=== PATIENT | female | born 1970 | race Caucasian/White ===

== ENCOUNTER 2018-05-04 16:01 | Emergency (ER) | payer OTHER, MEDICAID, SELFPAY ==
[2018-05-04 16:19] VITALS: BP 142/95; PULSE 76; RESP 20; TEMP 36.4; O2SAT 95; BMI 52.4
--- NOTE | 2018-05-04 16:22 | DI.RAD.S_ITS ---
PROCEDURE: XR SHOULDER RT MIN 2V INDICATIONS: injury, fall, pain TECHNIQUE: 3 views of the shoulder were acquired. COMPARISON: None. FINDINGS: Bones: No fractures or dislocations. No suspicious bony lesions. Visualized ribs appear intact. Soft tissues: No suspicious soft tissue calcifications. IMPRESSION: No visualized acute fracture or dislocation. However, if clinical concern and/or pain persist, short interval imaging followup in 7-10 days is recommended, as occult injury cannot be definitively excluded. Dictated by: Lashon Lauren M.D. on 05/04/2018 at 18:16 Approved by: Lashon Lauren M.D. on 05/04/2018 at 18:17
--- NOTE | 2018-05-04 16:31 | PC.NURSE ---
Stable. MD exam in triage
--- NOTE | 2018-05-04 17:41 | ED_ITS ---
HPI - Extremity Injury (Upper) General Chief Complaint: Extremity Injury, Upper Stated Complaint: FELL A COUPLE DAYS AGO,STATES DISLOCATED SHOULDER Time Seen by Provider: 05/04/18 16:28 History of Present Illness HPI narrative: HPI 47-year-old obese female presents for evaluation of right shoulder pain that began 2 days ago after she stumbled onto her right shoulder while walking at night without her glasses. Patient notes normal sensation in her right upper extremity, denies further injuries. ROS with no recent constitutional symptoms. Exam Gen: Pleasant, non-toxic appearing, resting comfortably HEENT: NC, AT, PEERL, EOMI. Resp: Clear to auscultation bilaterally. Unlabored respirations with a normal work of breathing. Card: Regular rate and rhythm. Extremities warm and well perfused. GI: Non-distended. : Deferred MSK: RightLeft Upper Extremity: Visually normal, full functional range of motion of the shoulder, elbow, wrist, and fingers. Tenderness to palpation over the long head of the biceps tendon patient, localizes pain over this region with abduction. No abnormal warmth, tenderness, or other palpable abnormalities of the joints or upper arm or forearm; muscle compartments soft.2+ radial pulse , all fingers warm and well perfused.Sensation intact to touch on all fingers. Neuro: AO x 3, no facial asymmetry, vision and hearing WNL. Heme/Lymph: Deferred Skin: Normal color with no visible lesions (other than noted above). Psych: Mood and affect appropriate. XR R Shoulder: pending. MDM Previous chart, nursing note, and vitals reviewed. A: 47-year-old obese female presents for evaluation of right shoulder pain that began 2 days ago after she stumbled onto her right shoulder while walking at night without her glasses. CMS intact. Pain localized over long head of biceps tendon, suspect a strain given full range of motion with only mild to moderate discomfort. Imaging pending at time of patient care transfer to Dr. Cardona, the oncoming overnight provider. Prior to patient care transfer, the patient was advised to use OTC analgesics and follow up with her PCP as needed. Impression: right shoulder pain (please reference below for remainder of encounter information) Related Data Home Medications Medication Instructions Recorded Confirmed buspirone 10 mg PO BID #0 11/09/17 Previous Rx's Medication Instructions Recorded sumatriptan succinate 100 mg PO PRN PRN #9 tab 02/07/17 cetirizine 10 mg PO Q DAY #30 tab 06/05/17 cyclobenzaprine 10 mg PO TIDP PRN #30 tab 08/17/17 albuterol sulfate [Ventolin HFA] 2 puff INH Q4HP PRN #1 inh 09/12/17 topiramate 25 mg PO HS #30 tab 01/17/18 alprazolam 0.25 mg tablet 0.25 mg PO SEE INSTRUCTIONS #30 tab 03/20/18 Allergies Allergy/AdvReac Type Severity Reaction Status Date / Time latex [LATEX] Allergy Severe RASH Unverified 01/23/18 11:47 morphine Allergy Mild Unverified 01/23/18 11:47 PFSH Surgical History Status post tubal ligation (10/31/10) Family History Brother Age: 50 Gout, unspecified cause, unspecified chronicity, unspecified site Essential hypertension Borderline type 2 diabetes mellitus Father Essential hypertension Gout, unspecified cause, unspecified chronicity, unspecified site Hyperlipidemia Mother Age: 69 ST elevation myocardial infarction (STEMI), unspecified artery Diabetes mellitus Hyperlipidemia Hypertension Sister Age: 48 Cerebrovascular accident (CVA), unspecified Pacemaker Gout, unspecified cause, unspecified chronicity, unspecified site Social History Smoking Status: Never smoker Exam Initial Vital Signs Initial Vital Signs: Vital Signs Temperature 97.5 F L 05/04/18 16:19 Pulse Rate 76 05/04/18 16:19 Respiratory Rate 20 05/04/18 16:19 Blood Pressure 142/95 H 05/04/18 16:19 Pulse Oximetry 95 05/04/18 16:19 Course Orders Ordered: ED Orders 05/04/18 16:22 XR shoulder RT min 2V Stat Vital Signs - 8 hr 05/04/18 16:19 Temperature 97.5 F L Pulse Rate 76 Respiratory Rate 20 Blood Pressure 142/95 H Pulse Oximetry 95 Discharge Plan Departure Prescriptions: No Action sumatriptan succinate 100 MG tablet 100 mg PO PRN PRNQty: 9 RF: 5 cetirizine 10 MG tablet 10 mg PO Q DAY Qty: 30 RF: 1 cyclobenzaprine 10 MG tablet 10 mg PO TIDP PRNQty: 30 RF: 0 albuterol sulfate [Ventolin HFA] 90 MCG/PUFF HFA aerosol inhaler 2 puff INH Q4HP PRNQty: 1 RF: 0 buspirone 10 MG tablet 10 mg PO BID Qty: 0 RF: 0 topiramate 25 MG tablet 25 mg PO HS Qty: 30 RF: 2 alprazolam 0.25 mg tablet 0.25 mg PO SEE INSTRUCTIONS Qty: 30 RF: 1
== END 2018-05-04 18:40 | disposition home or self-care (01) ==
PROVIDERS: Emergency Provider Emergency Medicine; Family Provider Family Medicine; PCP Family Medicine
DX: M25.511 Pain in right shoulder (principal); W01.0XXA Fall on same level from slipping, tripping and stumbling without subsequent striking against object, initial encounter
CPT/HCPCS: 73030; 99282; 99283

== ENCOUNTER → 2019-01-14 08:17 | Outpatient (CLI) | payer OTHER, MEDICAID, SELFPAY ==
[2019-01-14 09:06] LABS: Hemoglobin A1C% w Est Avg Glu 5.3 % (4.0-6.0)
[2019-01-14 09:13] LABS: Alanine Aminotransferase 49 IU/L (9-52); Albumin 4.2 g/dL (3.5-5.0); Albumin Globulin Ratio 1.2 (1.0-2.8); Alkaline Phosphatase 77 U/L (38-126); Aspartate Aminotransferase 37 IU/L (14-36); BUN Creatinine Ratio 17.5 (6-22); Bilirubin Total 0.8 mg/dL (0.2-1.3); Blood Urea Nitrogen 14 mg/dL (7-17); Calcium 9.3 mg/dL (8.4-10.2); Carbon Dioxide 29 mmol/L (22-32); Chloride 102 mmol/L (98-107); Cholesterol 171 mg/dL (140-199); Estimated Glomerular Filt Rate > 60.0 mL/min (>60); Globulin 3.5 g/dL (1.7-4.1); Glucose 96 mg/dL (70-100); HDL Cholesterol 45 mg/dL (40-60); HEMOLYSIS < 15 (0-50); LDL Cholesterol Calculated 108 mg/dL (<100); Potassium 4.8 mmol/L (3.4-5.1); Sodium 138 mmol/L (137-145); Total Protein 7.7 g/dL (6.3-8.2); Triglycerides 91 mg/dL (35-150)
== END ==
PROVIDERS: PCP Family Medicine; Visit Provider Family Medicine
DX: F41.8 Other specified anxiety disorders (principal); E66.01 Morbid (severe) obesity due to excess calories
CPT/HCPCS: 36415; 80053; 80061; 83036

== ENCOUNTER 2019-01-31 11:20 | Emergency (ER) | payer OTHER, MEDICAID, SELFPAY ==
[2019-01-31 11:32] VITALS: BP 155/91; PULSE 92; RESP 22; TEMP 36.5; O2SAT 97
--- NOTE | 2019-01-31 12:38 | PC.NURSE ---
Traci is tearful talking with this RN, reports feel edgy. She and her have been homeless since Oct and lost her mother as well in Oct. She hasn't slept for 3 days due to being afraid and feeling not safe sleeping in a tent in [place] which was provided by a local [facility]. She also hasn't been eating, now showered for days, being cold and wet in living in the tent. She had a suicidal thought this AM but actually she thinks it's her anxiety that is overwhelming her and does not really have S.I. Hx of S. I and S.A in a couple of decades ago with pills. Hx of depression and anxiety. Pt provided nourishments and offered warm blanket. Denies ETOH, smoking and reports drug free for about 6 months.
--- NOTE | 2019-01-31 13:02 | ED_ITS ---
HPI - Anxiety <ERICA Renee - Last Filed: 01/31/19 16:32> General Chief Complaint: Anxiety Stated Complaint: anxiety attack Time Seen by Provider: 01/31/19 12:45 Source: patient Mode of arrival: ambulatory Limitations: no limitations History of Present Illness HPI narrative: The patient is a 48-year-old female former smoker with history of anxiety who presents with a chief complaint of anxiety. she states stressors include her mother's , living in a car, running out of her BuSpar. She states that her anxiety has been really bad recently and she just needs ?something to take the edge off. She was recently started on trazodone to help sleep, but then stopped taking it. chart reveals illustrate that she received a prescription for 30 tabs of alprazolam with 1 refill as well as 60 tabs of BuSpar with 3 refills on 01/10. She denies any current suicidal ideation or plan. She denies any current homicidal ideation or plan Related Data Previous Rx's Medication Instructions Recorded cetirizine 10 mg PO Q DAY #30 tab 06/05/17 sumatriptan succinate 100 mg PO PRN PRN #9 tab 08/27/18 albuterol sulfate HFA 90 2 puff INHALATION Q4HP PRN #1 inh 10/14/18 mcg/actuation aerosol inhaler trazodone 50 mg tablet See Rx Instructions PO BEDTIME PRN 10/31/18 #30 tab alprazolam 0.25 mg tablet 0.25 mg PO SEE INSTRUCTIONS #30 tab 01/10/19 buspirone 10 mg tablet 10 mg PO BID #60 tab 01/10/19 cyclobenzaprine 10 mg tablet 10 mg PO TIDP PRN #30 tab 01/10/19 magnesium glycinate 100 mg tablet 100 mg PO TID #90 tab 01/10/19 hydroxyzine HCl 25 mg PO TID-QID PRN #14 tab 01/31/19 Allergies Allergy/AdvReac Type Severity Reaction Status Date / Time latex [LATEX] Allergy Severe RASH Verified 10/31/18 09:42 morphine Allergy Mild Verified 10/31/18 09:42 Review of Systems <ERICA Renee - Last Filed: 01/31/19 16:32> Review of Systems GENERAL: Denies chills, fatigue, malaise, fever, sweats. HEENT: Denies sinus pain, ear pain, sore throat, difficulty swallowing, dizziness. RESPIRATORY: Denies dyspnea, cough, wheezing, hemoptysis, sputum. CARDIOVASCULAR: Denies chest pain, palpitations, orthopnea, edema, GASTROINTESTINAL: Denies nausea, vomiting, abdominal pain, diarrhea, constipation, melena. : Denies dysuria, frequency, incontinence, hematuria, urinary retention. MUSCULOSKELETAL: denies weakness, joint pain, or bony pain SKIN: Denies rash, skin lesions, or other NEUROLOGIC: Denies weakness, headache, numbness, change in speech, confusion, seizures, incoordination. PSYCHIATRIC: See HPI 12 point review of systems is negative except for those stated above PFSH <ERICA Renee - Last Filed: 01/31/19 16:32> Medical History Anxiety (Chronic 2000) Chronic back pain (Chronic 2010) Depression (Chronic 1998) Irregular periods/menstrual cycles (Chronic 2012) Migraines (Chronic 2011) Substance abuse (Chronic 1997) Vertigo (Chronic 1999) Chicken pox (Resolved 10/1974) Finger fracture (Resolved 2011) Fractured coccyx (Resolved 2011) 0 (Resolved) Normal Papanicolaou smear (Resolved) Rubella (Resolved 02/1974) Toe fracture (Resolved 2011) Surgical History Anesthesia (Resolved) Status post tubal ligation (Resolved 10/31/10) Family History (Updated 05/14/18 @ 15:54 by Rocio Bustillo) Brother Age: 51 Gout, unspecified cause, unspecified chronicity, unspecified site Essential hypertension Borderline type 2 diabetes mellitus Father Essential hypertension Gout, unspecified cause, unspecified chronicity, unspecified site Hyperlipidemia Adopted Mother Age: 70 ST elevation myocardial infarction (STEMI), unspecified artery Diabetes mellitus Hyperlipidemia Hypertension Sister Age: 49 Cerebrovascular accident (CVA), unspecified Pacemaker Gout, unspecified cause, unspecified chronicity, unspecified site Septal defect, heart Grandfather Angina at rest Grandmother No problems noted. Grandfather Cancer Grandmother Cancer Social History Smoking Status: Former smoker alcohol intake: never substance use type: does not use Family History Brother Age: 51 Gout, unspecified cause, unspecified chronicity, unspecified site Essential hypertension Borderline type 2 diabetes mellitus Father Essential hypertension Gout, unspecified cause, unspecified chronicity, unspecified site Hyperlipidemia Adopted Mother Age: 70 ST elevation myocardial infarction (STEMI), unspecified artery Diabetes mellitus Hyperlipidemia Hypertension Sister Age: 49 Cerebrovascular accident (CVA), unspecified Pacemaker Gout, unspecified cause, unspecified chronicity, unspecified site Septal defect, heart Grandfather Angina at rest Grandmother No problems noted. Grandfather Cancer Grandmother Cancer Social History Smoking Status: Former smoker alcohol intake: never substance use type: does not use Exam <ERICA Renee - Last Filed: 01/31/19 16:32> Narrative Exam Narrative: GENERAL: Obese female, teary HEAD: Atraumatic. Normocephalic. No temporal or scalp tenderness. EYES: Pupils equal round and reactive. Extraocular motions intact. No scleral icterus. No injection or drainage. ENT: Nose without bleeding, purulent drainage or septal hematoma. Throat without erythema, tonsillar hypertrophy or exudate. Uvula midline. Airway patent. NECK: Trachea midline. No JVD or lymphadenopathy. Supple, nontender, no meningeal signs. CARDIOVASCULAR: Regular rate and rhythm RESPIRATORY: No cough. No increased respiratory effort EXTREMITIES: No clubbing, cyanosis, or edema. No joint tenderness, effusion, or edema noted. BACK: Nontender without deformity or crepitance. No flank tenderness. NEURO: AOx3. Anxious. Rocking back and forth at times. SKIN: No rash or erythema. Initial Vital Signs Initial Vital Signs: Vital Signs Temperature 97.7 F 01/31/19 11:32 Pulse Rate 92 H 01/31/19 11:32 Respiratory Rate 22 01/31/19 11:32 Blood Pressure 155/91 H 01/31/19 11:32 Pulse Oximetry 97 01/31/19 11:32 <Betsy Bryan DO - Last Filed: 02/01/19 07:20> Initial Vital Signs Initial Vital Signs: Vital Signs Temperature 97.7 F 01/31/19 11:32 Pulse Rate 92 H 01/31/19 11:32 Respiratory Rate 22 01/31/19 11:32 Blood Pressure 155/91 H 01/31/19 11:32 Pulse Oximetry 97 01/31/19 11:32 Course <DAMION Renee-BC - Last Filed: 01/31/19 16:32> Orders Ordered: Discontinued Medications Hydroxyzine Pamoate (Vistaril) 50 mg PO NOW ONE Stop: 01/31/19 12:56 Last Admin: 01/31/19 13:04 Dose: 50 mg Vital Signs - 8 hr 01/31/19 11:32 01/31/19 14:16 01/31/19 15:52 Temperature 97.7 F Pulse Rate 92 H 70 80 Respiratory Rate 22 18 18 Blood Pressure 155/91 H Blood Pressure [Right Arm] 126/74 124/84 Pulse Oximetry 97 95 100 <Betsy Bryan DO - Last Filed: 02/01/19 07:20> Orders Ordered: Discontinued Medications Hydroxyzine Pamoate (Vistaril) 50 mg PO NOW ONE Stop: 01/31/19 12:56 Last Admin: 01/31/19 13:04 Dose: 50 mg Vital Signs - 8 hr 01/31/19 11:32 01/31/19 14:16 01/31/19 15:52 Temperature 97.7 F Pulse Rate 92 H 70 80 Respiratory Rate 22 18 18 Blood Pressure 155/91 H Blood Pressure [Right Arm] 126/74 124/84 Pulse Oximetry 97 95 100 MDM - Anxiety <ERICA Renee - Last Filed: 01/31/19 16:32> MDM Narrative Medical decision making narrative: The patient is a 48-year-old female history of anxiety who presents with a chief complaint of anxiety. She was given Vistaril in the emergency department with good relief. Our social media sr strategy manager spent a copious amount of time with her, discussing her situation as well as discharge planning. Our social media sr strategy manager was able to secure her lodging for tonight and deemed her not a threat to herself or others. I agree with her assessment. I gave the patient a prescription of Vistaril. Discussed at length following up with her primary care provider as well as going back to the emergency department for any acute concerns including chest pain shortness of breath or thoughts of hurting herself or anybody else. Patient has no questions or concerns upon discharge. Discharge Plan Departure Patient Disposition: Home Clinical Impression: Anxiety Discharge Date/Time: 01/31/19 16:16 Interventions: ED Discharge Assessment Last Done: 01/31/19 16:16 Instructions: DI for Anxiety -- Adult Activity Restrictions/Additional Instructions: Social Work has worked hard to get you a place to stay tonight. The come back to the ER if you have any acute concerns such as chest pain shortness of breath or thoughts of hurting herself or anybody else. Please follow up with her primary care provider soon as possible. I have given her a small prescription of Vistaril which is an anti anxiety medication. Please do not combine that with Benadryl or other type 1 antihistamines. Please come back to the emergency department for acute concerns. Please follow up with primary care provider regardless. Prescriptions: New hydroxyzine HCl 25 mg tablet 25 mg PO TID-QID PRN (Reason: anxiety) Qty: 14 RF: 0 No Action cetirizine 10 MG tablet 10 mg PO Q DAY Qty: 30 RF: 1 sumatriptan succinate 100 mg tablet 100 mg PO PRN PRNQty: 9 RF: 5 albuterol sulfate [Ventolin HFA] 90 mcg/actuation HFA aerosol inhaler 2 puff INHALATION Q4HP PRN (Reason: cough) Qty: 1 RF: 0 trazodone 50 mg tablet See Rx Instructions PO BEDTIME PRN (Reason: insomnia) Qty: 30 RF: 1 magnesium glycinate 100 mg tablet 100 mg PO TID Qty: 90 RF: 1 cyclobenzaprine 10 mg tablet 10 mg PO TIDP PRN (Reason: muscle spasm) Qty: 30 RF: 0 buspirone 10 mg tablet 10 mg PO BID Qty: 60 RF: 3 alprazolam 0.25 mg tablet 0.25 mg PO SEE INSTRUCTIONS Qty: 30 RF: 1 Referrals: Justina Campa DO [Primary Care Provider] - <Betsy Bryan DO - Last Filed: 02/01/19 07:20> [facility] Att[facility]: I was immediately available in the department for consultation. This documentation has been reviewed and I agree with assessment and plan. Supervised by Betsy Bryan DO
[2019-01-31] MEDS: hydrOXYzine pamoate 25 MG CAPSULE 50 MG PO (13:04)
--- NOTE | 2019-01-31 14:12 | PC.NURSE ---
Pt evaluated by social worker masters at bedside
[2019-01-31 14:16] VITALS: BP 126/74; PULSE 70; RESP 18; O2SAT 95
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
[2019-01-31 15:52] VITALS: BP 124/84; PULSE 80; RESP 18; O2SAT 100
== END 2019-01-31 16:16 | disposition home or self-care (01) ==
PROVIDERS: Emergency Provider Nurse Practitioner Family; PCP Family Medicine
DX: F41.9 Anxiety disorder, unspecified (principal)
CPT/HCPCS: 99282; 99283

== ENCOUNTER → 2021-02-03 10:28 | Outpatient (CLI) | payer OTHER, MEDICAID, SELFPAY ==
[2021-02-03] MEDS: COVID-19 VACC #1, MRNA(MOD) 100 MCG/0.5 ML VIAL IM (10:37)
== END ==
PROVIDERS: Visit Provider Internal Medicine
DX: Z23 Encounter for immunization (principal)
CPT/HCPCS: 0011A; 91301

== ENCOUNTER → 2021-03-03 10:21 | Outpatient (CLI) | payer OTHER, MEDICAID, SELFPAY ==
[2021-03-03] MEDS: COVID-19 VACC #2, MRNA(MOD) 100 MCG/0.5 ML VIAL IM (10:29)
== END ==
PROVIDERS: Visit Provider Internal Medicine
DX: Z23 Encounter for immunization (principal)
CPT/HCPCS: 0012A; 91301

== ENCOUNTER → 2021-11-18 16:33 | Outpatient (CLI) | payer OTHER, MEDICAID, SELFPAY ==
[2021-11-18 17:56] LABS: Influenza A - CEPHEID Flu A NEGATIVE (NEGATIVE); Influenza B - CEPHEID Flu B NEGATIVE (NEGATIVE)
[2021-11-18 17:59] LABS: COVID-19 CEPHEID PCR (VTM/NP) POSITIVE (Negative)
== END ==
PROVIDERS: Visit Provider Physician Assistant
DX: U07.1 COVID-19 (principal); Z20.822 Contact with and (suspected) exposure to COVID-19; R05.9 Cough, unspecified
CPT/HCPCS: 0240U

== ENCOUNTER 2022-01-14 20:54 | Emergency (ER) | payer OTHER, MEDICAID, SELFPAY ==
[2022-01-14 21:00] VITALS: BP 192/81; PULSE 94; RESP 18; TEMP 36.7; O2SAT 97; BMI 41.5
--- NOTE | 2022-01-14 21:06 | ED.BACK ---
HPI - Back Pain/Injury General Chief Complaint: Back Pain/Injury Stated Complaint: Fell from mtr home 18, Landed on tailbone Time Seen by Provider: 01/14/22 21:01 History of Present Illness HPI Narrative: Patient is a 51-year-old female with history of anxiety presenting today after fall. She was getting out of her motor home from the wheelchair van driver seat she stepped down onto the step about 18 in off the ground when she slipped and fell landing on her buttock and hitting her back. She does not believe she hit her head. The fall happened at around 1:00 p.m.. She took 600 mg ibuprofen is and Flexeril which usually helps however she still having pain. It hurts to walk. No numbness tingling or weakness in her lower extremities. No other injuries at this time. Related Data Previous Rx's Medication Instructions Recorded cetirizine 10 mg tablet 10 mg PO Q DAY #30 tab 06/05/17 albuterol sulfate 90 mcg/actuation 2 puff INHALATION Q4HP PRN #1 inh 10/14/18 aerosol inhaler (Ventolin HFA) trazodone 50 mg tablet See Rx Instructions PO BEDTIME PRN 10/31/18 #30 tab buspirone 10 mg tablet 10 mg PO BID #60 tab 01/10/19 magnesium glycinate 100 mg tablet 100 mg PO TID #90 tab 01/10/19 hydroxyzine HCl 25 mg tablet 25 mg PO TID-QID PRN #60 tab 04/07/19 alprazolam 0.25 mg tablet 0.25 mg PO SEE INSTRUCTIONS #30 tab 05/09/19 cyclobenzaprine 10 mg tablet 10 mg PO TIDP PRN #30 tab 05/09/19 naproxen 500 mg tablet 500 mg PO BID PRN #20 tab 05/09/19 metformin 500 mg tablet 250 mg PO BID #30 tab 05/12/19 albuterol sulfate 90 mcg/actuation 2 puff INHALATION Q6H PRN #8.5 g 11/18/21 aerosol inhaler diazepam 5 mg tablet (Valium) 5 mg PO Q12HR PRN #10 tab 01/14/22 hydrocodone 5 mg-acetaminophen 325 1 tab PO Q6H PRN #10 tab 01/14/22 mg tablet Allergies Allergy/AdvReac Type Severity Reaction Status Date / Time latex [LATEX] Allergy Severe RASH Verified 11/18/21 16:37 morphine Allergy Mild Verified 11/18/21 16:37 Review of Systems Review of Systems Narrative: GENERAL: Denies chills,fever HEENT: Denies throat pain RESPIRATORY: Denies dyspnea, cough, wheezing CARDIOVASCULAR: Denies chest pain, palpitations GASTROINTESTINAL: Denies nausea, vomiting MUSCULOSKELETAL: See HPI SKIN: No rash, no laceration, no pruritus NEUROLOGIC: Denies weakness, dizziness, headache, numbness 8 point review of systems is negative except for those stated above and HPI Patient History Medical History (Updated 01/14/22 @ 22:05 by Kaitlin Fitzpatrick DO) Anxiety (2000) Chicken pox (10/1974) Chronic back pain (2010) Depression (1998) Finger fracture (2011) Fractured coccyx (2011) 0 Irregular periods/menstrual cycles (2012) Migraines (2011) Normal Papanicolaou smear Rubella (02/1974) Substance abuse (1997) Toe fracture (2011) Vertigo (1999) Surgical History Anesthesia Status post tubal ligation (10/31/10) Family History Brother Age: 54 Gout, unspecified cause, unspecified chronicity, unspecified site Essential hypertension Borderline type 2 diabetes mellitus Father Essential hypertension Gout, unspecified cause, unspecified chronicity, unspecified site Hyperlipidemia Adopted Mother Age: 73 ST elevation myocardial infarction (STEMI), unspecified artery Diabetes mellitus Hyperlipidemia Hypertension Sister Age: 52 Cerebrovascular accident (CVA), unspecified Pacemaker Gout, unspecified cause, unspecified chronicity, unspecified site Septal defect, heart Grandfather Angina at rest Grandmother No problems noted. Grandfather Cancer Grandmother Cancer Social History Smoking Status: Former smoker alcohol intake: never substance use type: does not use Smoking Status: Former smoker alcohol intake frequency: 0-2 drinks per day Substance Use Type: does not use Exam Initial Vital Signs Initial Vital Signs: Vital Signs Temperature 98.0 F 01/14/22 21:00 Pulse Rate 94 H 01/14/22 21:00 Respiratory Rate 18 01/14/22 21:00 Blood Pressure 192/81 H 01/14/22 21:00 Pulse Oximetry 97 01/14/22 21:00 GENERAL: Alert 51-year-old female BMI 41 appears in pain CARDIOVASCULAR: peripheral pulses in tact, cap refill <2 sec RESPIRATORY: No respiratory distress, speaks in full sentences without difficulty BACK: Lower midline lumbar pain and sacral like pain no sign of trauma is difficult to tell due to patient body habitus. Moving both lower extremities EXTREMITIES: Normal range of motion, no clubbing or edema. Neurovascularly intact NEUROLOGICAL: Cranial nerves II through XII grossly intact. Normal gait and speech. SKIN: Warm, dry, no petechiae, no rashes or lesions. Course Orders Ordered: ED Orders 01/14/22 21:13 XR lumbar spine 2-3V Stat XR sacrum coccyx min 2V Stat Discontinued Medications Hydrocodone Bitart/Acetaminophen (Hydrocodone/Acet 5/325 Tablet) 1 tab PO NOW ONE Stop: 01/14/22 21:14 Last Admin: 01/14/22 21:32 Dose: 1 tab Documented by: BRITTANY Hydrocodone Bitart/Acetaminophen (Hydrocodone/Acet 5/325 Prepack) 1 bottle MISC SEEINSTR ONE Stop: 01/14/22 22:06 Diazepam (Diazepam 5 Mg Tablet) 5 mg PO NOW ONE Stop: 01/14/22 21:14 Last Admin: 01/14/22 21:32 Dose: 5 mg Documented by: BRITTANY Vital Signs Vital signs: Vital Signs - 8 hr 01/14/22 21:00 Temperature 98.0 F Pulse Rate 94 H Respiratory Rate 18 Blood Pressure 192/81 H Pulse Oximetry 97 MDM - Back Pain/Injury Imaging Data Extremity x-ray #1: Radiologist's Impression: PROCEDURE:? XR LUMBAR SPINE 2-3V ? INDICATIONS:? fall pain ? TECHNIQUE:? 3 views of the lumbar spine were acquired.? ? COMPARISON:? None. ? FINDINGS:? ? Bones:? 5 [id number] vertebrae are present.? There is normal bony alignment.? There is a probable acute vertebral body compression fracture involving the upper endplate L3.. ?No suspicious bony lesions.? ? Soft tissues:? Overlying bowel gas pattern is normal.? No suspicious soft tissue calcifications.? ? ? IMPRESSION:? Probable acute mild superior endplate impaction fracture involving L3 with approximately a 10% vertebral height reduction at the upper endplate, middle 3rd of the vertebral body, when compared to the 2 levels immediately above and below. ? ? Dictated by: Addison Quintero M.D. on 01/14/2022 at 21:51 ? ? Extremity x-ray #2: Radiologist's Impression: PROCEDURE:? XR SACRUM COCCYX MIN 2V ? INDICATIONS:? fall pain ? TECHNIQUE:? 3 views of the sacrum and coccyx acquired.? ? COMPARISON:? [facility], , SACRUM-COCCYX MIN 2 VIEWS, 02/08/2014, 3:58. ? FINDINGS:? ? Bones:? No fractures or dislocations.? No suspicious bony lesions.? ? Soft tissues:? Visualized bowel gas pattern is normal.? No suspicious soft tissue densities.? ? IMPRESSION:? No trauma to the pelvis is found, the sacrum and coccyx appears normal where well seen. ? ? Dictated by: Addison Quintero M.D. on 01/14/2022 at 21:52 ? ? Approved by: Addison Quintero M.D. on 01/14/2022 at 21:52 ? MDM Narrative Medical decision making narrative: The patient is feeling much better after [place] and Valium sleepy but still responsive. X-ray does confirm a probable L3 compression fracture. She has no neurologic deficits at this time. Recommend outpatient follow-up. After did discuss with her not to take Flexeril Valium and [place] all at the same time. Discharge Plan Departure Patient Disposition: Home Clinical Impression: Closed compression fracture of L3 vertebra Instructions: Vertebral Compression Fracture Activity Restrictions/Additional Instructions: *You have been diagnosed with compression fracture L3 *What to do: You do have compression fracture. This should heal over time. You will need to follow-up with orthopedics and/or your primary care provider *Continue to take medications as directed [place] 1 tablet every 6 hours if needed for severe pain Motrin 600 mg every 6 hours if needed for [id number] pain Valium 5 mg every 12 hours for muscle spasm, do not mix with Flexeril/cyclobenzaprine *Follow up with your primary care provider in 2-3 days or call [phone] *Return to ER if you should have increasing leg weakness loss of urine or stool, fever or any new, worsening or concerning symptoms CONTROLLED SUBSTANCE DISCHARGE (Narcotoic/benzodiazepine/Flexeril/Phenergan) 1. You have been prescribed narcotic medications, it does have acetaminophen/Tylenol/paracetamol in it, DO NOT TAKE MORE THAN 4,00mg in 24 hours of Tylenol. TRAMADOL DOES NOT CONTAIN TYLENOL 2. Please understand that we cannot provide further refills of narcotics, benzodiazepines or controlled substances through the ED and her pain management will need to be through your provider. 3. While on these medications you cannot drive or operate heavy machinery. 4. You cannot sign legal documents or perform any duties such as this. 5. As long as you're taking opiate pain medications he should also be taking a stool softener such as Colace, Dulcolax, MiraLAX or prune juice, to help avoid constipation. Prescriptions: New hydrocodone-acetaminophen 5-325 mg tablet 1 tab PO Q6H PRN (Reason: pain) Qty: 10 0RF diazepam [Valium] 5 mg tablet 5 mg PO Q12HR PRN (Reason: muscle spasm) Qty: 10 0RF No Action albuterol sulfate 90 mcg/actuation HFA aerosol inhaler 2 puff inhalation Q6H PRN (Reason: shortness of breath or wheezing) Qty: 8.5 0RF cetirizine 10 MG tablet 10 mg PO Q DAY Qty: 30 1RF albuterol sulfate [Ventolin HFA] 90 mcg/actuation HFA aerosol inhaler 2 puff INHALATION Q4HP PRN (Reason: cough) Qty: 1 0RF hydroxyzine HCl 25 mg tablet 25 mg PO TID-QID PRN (Reason: anxiety) Qty: 60 0RF naproxen 500 mg tablet 500 mg PO BID PRN (Reason: headache) Qty: 20 0RF cyclobenzaprine 10 mg tablet 10 mg PO TIDP PRN (Reason: muscle spasm) Qty: 30 0RF alprazolam 0.25 mg tablet 0.25 mg PO SEE INSTRUCTIONS Qty: 30 1RF Rx Instructions: Take one tab every 8 hrs prn anxiety, may take 2 tabs at hs metformin 500 mg tablet 250 mg PO BID Qty: 30 1RF Rx Instructions: take 250mg(1/2 tab) with breakfast daily for first week, and then take twice daily - with breakfast and dinner. trazodone 50 mg tablet See Rx Instructions PO BEDTIME PRN (Reason: insomnia) Qty: 30 1RF Dose Instruction: PO BEDTIME PRN; Rx Instructions: Take 1-2 tablets as needed for insomnia magnesium glycinate 100 mg tablet 100 mg PO TID Qty: 90 1RF buspirone 10 mg tablet 10 mg PO BID Qty: 60 3RF Referrals: [facility] [Provider Group]
--- NOTE | 2022-01-14 21:13 | DI.RAD.S_ITS ---
PROCEDURE: XR SACRUM COCCYX MIN 2V INDICATIONS: fall pain TECHNIQUE: 3 views of the sacrum and coccyx acquired. COMPARISON: [facility], , SACRUM-COCCYX MIN 2 VIEWS, 02/08/2014, 3:58. FINDINGS: Bones: No fractures or dislocations. No suspicious bony lesions. Soft tissues: Visualized bowel gas pattern is normal. No suspicious soft tissue densities. IMPRESSION: No trauma to the pelvis is found, the sacrum and coccyx appears normal where well seen. Dictated by: Addison Quintero M.D. on 01/14/2022 at 21:52 Approved by: Addison Quintero M.D. on 01/14/2022 at 21:52
--- NOTE | 2022-01-14 21:13 | DI.RAD.S_ITS ---
PROCEDURE: XR LUMBAR SPINE 2-3V INDICATIONS: fall pain TECHNIQUE: 3 views of the lumbar spine were acquired. COMPARISON: None. FINDINGS: Bones: 5 [id number] vertebrae are present. There is normal bony alignment. There is a probable acute vertebral body compression fracture involving the upper endplate L3.. No suspicious bony lesions. Soft tissues: Overlying bowel gas pattern is normal. No suspicious soft tissue calcifications. IMPRESSION: Probable acute mild superior endplate impaction fracture involving L3 with approximately a 10% vertebral height reduction at the upper endplate, middle 3rd of the vertebral body, when compared to the 2 levels immediately above and below. Dictated by: Addison Quintero M.D. on 01/14/2022 at 21:51 Approved by: Addison Quintero M.D. on 01/14/2022 at 21:51
[2022-01-14] MEDS: HYDROCODONE/ACET 5/325 TABLET 1 TAB PO (21:32)
[2022-01-14] MEDS: diazePAM 5 MG TABLET PO (21:32)
== END 2022-01-14 22:15 | disposition home or self-care (01) ==
PROVIDERS: Emergency Provider Emergency Medicine
DX: S32.039A Unspecified fracture of third lumbar vertebra, initial encounter for closed fracture (principal); W10.9XXA Fall (on) (from) unspecified stairs and steps, initial encounter
CPT/HCPCS: 72100; 72220; 99283

== ENCOUNTER 2023-01-26 10:01 | Day surgery (SDC) | payer OTHER, MEDICAID, SELFPAY ==
[2023-01-26 10:22] VITALS: BMI 56.5
[2023-01-26 10:33] VITALS: BP 159/101; PULSE 90; RESP 12; TEMP 35.6; O2SAT 95
[2023-01-26] MEDS: LACTATED RINGERS 1,000 ML 42 ML IV (10:37)
--- NOTE | 2023-01-26 10:39 | SUR.OPER ---
Supine on padded OR bed, head on pillow, nonoperative arm secured on padded arm board at <90 degrees abduction, operative arm positioned on hand table, legs uncrossed, safety belt at thigh, tape over blanket over lower legs.
--- NOTE | 2023-01-26 10:57 | PM.PREOP ---
Pre-operative Note Interval Note History & Physical reviewed/Exam performed by Physician: Yes Changes to H&P: No
[2023-01-26] MEDS: CEFAZOLIN 2 GM/100 ML PREMIX 100 ML IV (11:18)
[2023-01-26] MEDS: BUPIVACAINE 0.5% (PF) 10 ML VIAL INJ (11:36)
[2023-01-26 11:48] VITALS: BP 141/83; PULSE 73; RESP 16; TEMP 35.9; O2SAT 99
[2023-01-26 11:55] VITALS: BP 146/92; PULSE 71; RESP 20; O2SAT 99
--- NOTE | 2023-01-26 12:44 | SUR.PHASEII ---
Pt with severe post op shivering. Donta ANDERS at bedside. See new order for Demerol IV.
--- NOTE | 2023-01-30 14:13 | PM.OP.1 ---
Operative Date/Time/Diagnoses Date of procedure: 01/26/23 Time of procedure: 11:00 Pre-op diagnosis: Right carpal tunnel syndrome Post-op diagnosis: same Procedure & Clinicians Procedure: Right carpal tunnel release Same procedure as scheduled: Yes Indications: Is a 52-year-old female with known significant cervical pathology and bilateral carpal tunnel syndrome. She is brought the operating room for a right carpal tunnel release. She is failed conservative treatment. She notes fairly incapacitating right wrist pain and significant numbness. Surgeon: Swapna Carroll Click Yes if Unassisted: Yes Anesthesia Type: Sedation and Other (IV regional) Operative Notes Findings: Moderate right median nerve compression Closure Type: primary Specimen(s): none sent Estimated Blood Loss (mL): 20 Blood products transfused: none Tourniquet time (min): 20 Procedure in detail: Patient was brought to the operating room. A time-out was performed. She was given IV antibiotics. She underwent induction of an IV regional. She did have problems laying flat and she had problems with her shoulder so we had her in a halo head elevated and a large bump underneath her shoulder in order to allow access to the volar aspect of her wrist. An incision was made at the base of the transverse carpal ligament dissection was carried out through skin and subcutaneous tissues. Palmar fascia was incised in line with the skin incision. Dissection was carried out down to the level of the transverse carpal ligament. Transverse carpal ligament was meticulously reduced under direct visualization. A portion of the antebrachial fascia was released subcutaneously. There was moderate compression of the median nerve. Motor branch was noted to be intact. There were no other abnormalities in the carpal canal. The wound was meticulously irrigated with normal saline. Marcaine was injected. The wound was closed with interrupted nylon and the patient was placed in a sterile dressing and a wrist splint. Tourniquet was deflated after adequate time for IV regional. She was transferred to recovery room in satisfactory condition. Complications: none Post-operative Condition: stable Disposition: same day surgery Plan for aftercare: Use splint for 10 days postoperatively. Keep dressing dry. Okay to use ice. Return in 10-14 days postoperatively for suture removal.
== END 2023-01-26 12:37 | disposition home or self-care (01) ==
PROVIDERS: Referring Provider Orthopaedic Surgery; Visit Provider Orthopaedic Surgery
PROC: (CPT 64721; principal; 2023-01-26 11:45)
DX: G56.01 Carpal tunnel syndrome, right upper limb (principal)
CPT/HCPCS: 64721; J0690; J2250; J3010

== ENCOUNTER 2023-03-23 08:42 | Day surgery (SDC) | payer OTHER, MEDICAID, SELFPAY ==
[2023-03-20 09:36] VITALS: BMI 59.9
[2023-03-23] MEDS: LACTATED RINGERS 1,000 ML 42 ML IV (09:20)
[2023-03-23] MEDS: ACETAMINOPHEN 325 MG TABLET 975 MG PO (09:20)
[2023-03-23 09:28] VITALS: BP 169/95; PULSE 76; RESP 21; TEMP 36.6; O2SAT 95; BMI 59.9
--- NOTE | 2023-03-23 11:02 | PM.HP.1 ---
History of Present Illness History of Present Illness Date Patient Seen: 03/23/23 Time Patient Seen: 11:02 Chief complaint: left carpal tunnel syndrome Narrative: This is a 52-year-old female with severe left carpal tunnel syndrome. She is brought the operating room for left carpal tunnel release. She is failed conservative treatment. [facility] Medical History (Updated 03/23/23 @ 11:05 by Swapna Carroll MD) Anxiety (2000) Chicken pox (10/1974) Chronic back pain (2010) Depression (1998) Finger fracture (2011) Fractured coccyx (2011) 0 History of COVID-19 (11/18/21) Irregular periods/menstrual cycles (2012) Migraines (2011) Morbid obesity with body mass index (BMI) greater than or equal to 50 (11/10/10) Normal Papanicolaou smear Rubella (02/1974) Substance abuse (1997) Toe fracture (2011) Vertigo (1999) Surgical History Anesthesia History of carpal tunnel surgery of right wrist (01/26/23) Status post tubal ligation (10/31/10) Family History Brother Age: 55 Gout, unspecified cause, unspecified chronicity, unspecified site Essential hypertension Borderline type 2 diabetes mellitus Father Essential hypertension Gout, unspecified cause, unspecified chronicity, unspecified site Hyperlipidemia Adopted Mother Age: 74 ST elevation myocardial infarction (STEMI), unspecified artery Diabetes mellitus Hyperlipidemia Hypertension Sister Age: 53 Cerebrovascular accident (CVA), unspecified Pacemaker Gout, unspecified cause, unspecified chronicity, unspecified site Septal defect, heart Grandfather Angina at rest Grandmother No problems noted. Grandfather Cancer Grandmother Cancer Social History household members: none Smoking Status: Former smoker alcohol intake: current substance use type: does not use Meds Home Medications and Allergies Home Medications Medication Instructions Recorded Confirmed Type hydroxyzine HCl 25 mg tablet 25 mg PO TID-QID PRN anxiety #60 04/07/19 03/23/23 Rx tabs cyclobenzaprine 10 mg tablet 10 mg PO TIDP PRN muscle spasm #30 05/09/19 03/23/23 Rx tabs amitriptyline 10 mg tablet 10 mg PO DAILY PRN Sleep 01/26/23 03/23/23 History venlafaxine 100 mg tablet 100 mg PO DAILY 01/26/23 03/23/23 History Allergies Allergy/AdvReac Type Severity Reaction Status Date / Time latex [LATEX] Allergy Severe RASH Verified 03/23/23 09:24 morphine Allergy Severe Vomiting Verified 03/23/23 09:24 Review of Systems Review of Systems Narrative: Review of systems negative Exam Vital Signs (past 8 hours): - 03/23/23 09:28 Temperature 98 F Pulse Rate 76 Respiratory Rate 21 Blood Pressure 169/95 H Pulse Oximetry 95 Oxygen Delivery Method Room Air Oxygen Delivery Method Room Air Narrative Exam Narrative: HEENT is benign lungs are clear cor regular rate and rhythm abdomen markedly obese benign, left wrist positive Tinel's at the wrist, positive Phalen's test, decreased human resources trainee strength Assessment & Plan Assessment and plan (1) Left carpal tunnel syndrome: Status: Acute (2) Morbid obesity with body mass index (BMI) greater than or equal to 50: Status: None Plan Left carpal tunnel release. Procedure alternatives risks benefits and complications discussed in detail. We are going to proceed with left carpal release.
[2023-03-23] MEDS: CEFAZOLIN 2 GM/100 ML PREMIX 100 ML IV (11:17)
--- NOTE | 2023-03-23 11:36 | SUR.OPER ---
Supine on padded OR bed, head on pillow, right arm secured on padded arm boards at <90 degrees abduction,left arm draped free on black padded hand table legs uncrossed, safety belt at thigh, tape over blanket over lower legs.
[2023-03-23] MEDS: BUPIVACAINE 0.5% (PF) 10 ML VIAL 20 ML INJ (11:44)
[2023-03-23 11:56] VITALS: BP 168/93; PULSE 68; RESP 18; TEMP 36.7; O2SAT 95
[2023-03-23 12:01] VITALS: BP 154/90; PULSE 72; RESP 18; O2SAT 98
--- NOTE | 2023-03-23 12:01 | PM.OP.1 ---
Operative Date/Time/Diagnoses Date of procedure: 03/23/23 Time of procedure: 10:30 Pre-op diagnosis: Severe left carpal tunnel syndrome Post-op diagnosis: same Procedure & Clinicians Procedure: Left carpal tunnel release Same procedure as scheduled: Yes Indications: This is a 52-year-old female with a severe left carpal tunnel syndrome she about the operating for left carpal tunnel release. Surgeon: Swapna Carroll Anesthesia Type: MAC +/- and Other (IV regional) Operative Notes Findings: Severe left median nerve compression Closure Type: primary Specimen(s): none sent Estimated Blood Loss (mL): 10 Blood products transfused: none Tourniquet time (min): 20 Procedure in detail: Patient was brought the operating room she underwent induction of an IV regional. Her left upper extremity was prepped and draped standard sterile fashion. A time-out was performed. She was given IV antibiotics. An incision was made in the palm over the transverse carpal ligament dissection was carried out through skin and subcutaneous tissues. Small Weitlaner retractor was placed. Palmar fascia was incised in line with the skin incision. Transverse carpal ligament was meticulously released. Antebrachial fascia was released subcutaneously. There was good visualization of the median nerve. There was moderate median nerve compression but no other abnormalities. Marcaine was injected. The wound was closed with interrupted Vicryl. The wound was dressed sterilely and placed in a splint. Complications: none Post-operative Condition: stable Disposition: Acute Care Plan for aftercare: Use splint for 7-10 days. Return to clinic in 10-14 days for suture removal
[2023-03-23] MEDS: OXYCODONE IR 5 MG TABLET PO (12:03)
[2023-03-23] MEDS: ONDANSETRON 4 MG/2 ML INJ IV (12:03)
[2023-03-23 12:06] VITALS: BP 167/103; PULSE 67; RESP 18; O2SAT 99
[2023-03-23 12:12] VITALS: BP 148/80; PULSE 69; RESP 18; O2SAT 96
[2023-03-23 12:24] VITALS: BP 148/90; PULSE 70; RESP 18; TEMP 36.3; O2SAT 97
--- NOTE | 2023-03-23 12:48 | SUR.PHASEII ---
DC home with friend Jennifer. pain 10/24. states she is ready to go home. all belongings, sling and DC instructions with patient
== END 2023-03-23 12:49 | disposition home or self-care (01) ==
PROVIDERS: Referring Provider Orthopaedic Surgery; Visit Provider Orthopaedic Surgery
PROC: (CPT 64721; principal; 2023-03-23 10:45)
DX: G56.02 Carpal tunnel syndrome, left upper limb (principal); E66.01 Morbid (severe) obesity due to excess calories; Z68.43 Body mass index [BMI] 50.0-59.9, adult
CPT/HCPCS: 64721; J0690; J2250; J2405; J3010